=== PATIENT | male | born 1970 | race Caucasian/White ===

== ENCOUNTER → 2017-03-05 | Outpatient (REF) ==
--- NOTE | 2017-03-05 14:13 | REP ---
RIGHT SHOULDER, THREE VIEWS: HISTORY: Degenerative joint disease. Postoperative change is present. There is no acute fracture or dislocation. There is narrowing of the joint spaces. Osteophytes are present at the acromioclavicular joint. There is irregularity of the superolateral head of the humerus. A subchondral cyst is present in the humerus. IMPRESSION: Degenerative change, as described above. Signed by Shane Myles MD 03/05/2017 02:23 P
== END ==
LOC: M SMT 11:31
PROVIDERS: ATTEND Internal Medicine
DX: Z02.1 Encounter for pre-employment examination (principal)

== ENCOUNTER → 2017-03-05 | Outpatient (CLI) | payer BC | LOC: M SMT 11:30 | PROVIDERS: ATTEND Internal Medicine | DX: Z02.1 Encounter for pre-employment examination (principal) ==